=== PATIENT | female | born 1960 | race Caucasian/White ===

== ENCOUNTER 2019-04-20 08:41 | Emergency (ER) | payer MEDICAID ==
[~2019-04-20 08:41] MED LIST: SODIUM BICARBONATE VIAL 50 MEQ/50 ML VIAL ONE
[2019-04-20] MEDS ORDERED: SODIUM CHLORIDE 0.9% (FLUSH) 10 ML SYG IV PRN (08:57)
--- NOTE | 2019-04-20 09:05 | RAD ---
EXAM DESCRIPTION: Chest,1 View CLINICAL HISTORY: 58 years Female, CARDIAC ARREST COMPARISON: None. Findings: Endotracheal tube tip 5 cm above the level of the lisseth. Cardiomegaly. Pulmonary vascular congestion. No pneumothorax. No pleural effusion. No focal consolidation. Interstitial pulmonary edema. No acute osseous abnormality. IMPRESSION: Cardiomegaly with pulmonary vascular congestion. Electronically signed by: Librado Michael MD 04/20/2019 9:04 AM CDT
[2019-04-20 09:20] VITALS: TEMP 97.9
--- NOTE | 2019-04-20 09:52 | ED.PDOC ---
History of Present Illness - General Chief Complaint: Cardiac Respiratory Arrest Time Seen by Provider: 04/20/19 08:56 Source: RN notes reviewed, Vital Signs reviewed, EMS notes reviewed, family - Daughter Exam Limitations: clinical condition Additional Information: Pt is a 58 y/o WF who was admitted to an SNF yesterday as a trach/vent pt. Pt found this am unresponsive. Last seen "normal" at 6 am. EMS called at 8:15 am for unresponsive pt. When they arrived they initially found no pulse. EMS began cpr with the SIMONE device and gave an amp of epi IVP. Pt then noted to have a pulse. Pt transported here for further care. On arrival, pt being bagged. Noted to have a HR in the 110's. Initial BP 85/50.on arrival here patient was given 1 amp of sodium bicarbonate. Patient was bagged rate of 22. End-tidal CO2's were 99. These came down to approximately 70. Patient was then placed on a vent. Patient was noted to intermittently attempt to over breathe the vent. - History of Present Illness Severity: severe Improving Factors: nothing Worsening Factors: nothing Associated Symptoms: other - unknown Allergies/Adverse Reactions: Allergies Benzocaine Allergy (Verified 04/20/19 08:55) Lidocaine Allergy (Verified 04/20/19 08:55) Review of Systems - Review of Systems Review of Systems: 04/20/19 09:52 unable to obtain due to patient's obtunded condition. Past Medical History (General) - Patient Medical History Hx Seizures: No Hx Stroke: No Hx Dementia: No Hx Asthma: Yes Hx of COPD: Yes Hx Cardiac Disorders: Yes Hx Congestive Heart Failure: Yes Hx Pacemaker: No Hx Hypertension: Yes Hx Thyroid Disease: Yes Hx Diabetes: Yes Hx Gastroesophageal Reflux: Yes Physical Exam - Physical Exam General Appearance: Obvious distress - patient is comatose., Obese, Well Groomed, Well Hydrated, Well Nourished Eye Exam: bilateral other - pupils are fixed and dilated at 9 millimeters Neck: supple, normal inspection, other - trach in place. Respiratory: rhonchi - diffusely throughout, other - no spontaneous respiratory effort initially. Cardiovascular/Chest: no murmur, tachycardia Peripheral Pulses: radial,right: 2+, radial,left: 2+ Gastrointestinal/Abdominal: normal bowel sounds, soft, distended Back Exam: normal inspection Extremity: other - patient is comatose and is not moving her extremities. She does have multiple eschars on bilateral forearms. Neurologic: other - patient with a GCS of 3. She is on a trach collar. Skin Exam: warm/dry, pallor Lymphatic: no adenopathy Progress - Progress Progress: 04/20/19 10:51 04/20/19 08:50 LACTIC ACID Stat 04/20/19 08:57 IV Care:Saline Lock per Protoc QSHIFT Telemetry .ONCE Sodium Chloride 0.9% (Flush) [Saline Flush Syringe] 10 ml IV PRN PRN EKG Stat Pulse Ox Stat 04/20/19 09:00 Pulse Oximetry Assessment DAILY 04/20/19 09:29 Urine Culture Stat 04/20/19 09:42 Capnography .ONCE Mechanical Ventilation DAILY 04/20/19 10:19 Arterial Blood Gas Stat Laboratory Results - last 24 hr 04/20/19 04/20/19 04/20/19 08:50 08:50 09:23 WBC 14.6 H RBC 2.73 L Hgb 8.2 L Hct 28.1 L MCV 103.1 H MCH 30.2 MCHC 29.3 L RDW 19.4 H Plt Count 255 MPV 9.4 Absolute Neuts (auto) Not Reportable Absolute Lymphs (auto) Not Reportable Absolute Monos (auto) Not Reportable Absolute Eos (auto) Not Reportable Neutrophils % Not Reportable Neutrophils % (Manual) 35.0 L Lymphocytes % Not Reportable Lymphocytes % (Manual) 49.0 Monocytes % Not Reportable Monocytes % (Manual) 8.0 Eosinophils % Not Reportable Basophils % Not Reportable Band Neutrophils 5.0 H Eosinophils 3.0 Platelet Estimate Normal Normal RBC Morphology 2+aniso PT 10.3 INR 1.03 PTT (SP) 27.0 pCO2 60 H pO2 342 H* HCO3 25.5 ABG pH 7.250 L* ABG O2 Saturation 99.8 H ABG Base Excess -1.6 ABG Deoxyhemoglobin 0.2 Oxyhemoglobin % 96.2 Carboxyhemoglobin % 0.4 L Methemoglobin % Sat 3.2 H Calc Total Hemoglobin 9.0 L Sodium 136 Potassium 4.7 Chloride 88 L Carbon Dioxide 23 Anion Gap 29.7 H BUN 27 H Creatinine 0.87 BUN/Creatinine Ratio 31.0 H Random Glucose 360 H Serum Osmolality 291.6 Calcium 9.4 Magnesium 2.9 H Total Bilirubin 0.8 Direct Bilirubin 0.1 Indirect Bilirubin 0.7 AST 37 ALT 13 Alkaline Phosphatase 71 Creatine Kinase 58 CK-MB (CK-2) 2.1 CK-MB (CK-2) % Not Reportable Troponin I 0.02 B-Natriuretic Peptide 269.0 H* Serum Total Protein 6.4 Albumin 3.3 Urine Color Urine Appearance Urine pH Ur Specific [place] Urine Protein Urine Glucose (UA) Urine Ketones Urine Blood Urine Nitrite Urine Bilirubin Urine Urobilinogen Ur Leukocyte Esterase Urine RBC Urine WBC Ur Epithelial Cells Urine Bacteria Urine Mucus 04/20/19 09:29 WBC RBC Hgb Hct MCV MCH MCHC RDW Plt Count MPV Absolute Neuts (auto) Absolute Lymphs (auto) Absolute Monos (auto) Absolute Eos (auto) Neutrophils % Neutrophils % (Manual) Lymphocytes % Lymphocytes % (Manual) Monocytes % Monocytes % (Manual) Eosinophils % Basophils % Band Neutrophils Eosinophils Platelet Estimate Normal RBC Morphology PT INR PTT (SP) pCO2 pO2 HCO3 ABG pH ABG O2 Saturation ABG Base Excess ABG Deoxyhemoglobin Oxyhemoglobin % Carboxyhemoglobin % Methemoglobin % Sat Calc Total Hemoglobin Sodium Potassium Chloride Carbon Dioxide Anion Gap BUN Creatinine BUN/Creatinine Ratio Random Glucose Serum Osmolality Calcium Magnesium Total Bilirubin Direct Bilirubin Indirect Bilirubin AST ALT Alkaline Phosphatase Creatine Kinase CK-MB (CK-2) CK-MB (CK-2) % Troponin I B-Natriuretic Peptide Serum Total Protein Albumin Urine Color Red H Urine Appearance Cloudy Urine pH 6.5 Ur Specific [place] 1.025 Urine Protein >=300 H Urine Glucose (UA) 100 H Urine Ketones Negative Urine Blood Large H Urine Nitrite Negative Urine Bilirubin Negative Urine Urobilinogen 0.2 Ur Leukocyte Esterase Trace H Urine RBC Tntc H Urine WBC Not Reportable Ur Epithelial Cells Not Reportable Urine Bacteria Not Reportable Urine Mucus Large 04/20/19 10:52 August Manzo M.D. #[id number] - Results/Orders Results/Orders: 04/20/19 08:50 LACTIC ACID Stat 04/20/19 08:57 IV Care:Saline Lock per Protoc QSHIFT Telemetry .ONCE B-TYPE NATRIURETIC PEPTIDE/BNP Stat CARDIAC PANEL,ER Stat HEPATIC FUNCTION PANEL Stat Sodium Chloride 0.9% (Flush) [Saline Flush Syringe] 10 ml IV PRN PRN EKG Stat Pulse Ox Stat 04/20/19 09:00 Pulse Oximetry Assessment DAILY 04/20/19 09:29 Urine Culture Stat 04/20/19 09:42 Capnography .ONCE Mechanical Ventilation DAILY Laboratory Results - last 24 hr 04/20/19 04/20/19 04/20/19 08:50 08:50 09:23 WBC 14.6 H RBC 2.73 L Hgb 8.2 L Hct 28.1 L MCV 103.1 H MCH 30.2 MCHC 29.3 L RDW 19.4 H Plt Count 255 MPV 9.4 Absolute Neuts (auto) Not Reportable Absolute Lymphs (auto) Not Reportable Absolute Monos (auto) Not Reportable Absolute Eos (auto) Not Reportable Neutrophils % Not Reportable Neutrophils % (Manual) 35.0 L Lymphocytes % Not Reportable Lymphocytes % (Manual) 49.0 Monocytes % Not Reportable Monocytes % (Manual) 8.0 Eosinophils % Not Reportable Basophils % Not Reportable Band Neutrophils 5.0 H Eosinophils 3.0 Platelet Estimate Normal Normal RBC Morphology 2+aniso PT 10.3 INR 1.03 PTT (SP) 27.0 pCO2 60 H pO2 342 H* HCO3 25.5 ABG pH 7.250 L* ABG O2 Saturation 99.8 H ABG Base Excess -1.6 ABG Deoxyhemoglobin 0.2 Oxyhemoglobin % 96.2 Carboxyhemoglobin % 0.4 L Methemoglobin % Sat 3.2 H Calc Total Hemoglobin 9.0 L Sodium 136 Potassium 4.7 Chloride 88 L Carbon Dioxide 23 Anion Gap 29.7 H BUN 27 H Creatinine 0.87 BUN/Creatinine Ratio 31.0 H Random Glucose 360 H Serum Osmolality 291.6 Calcium 9.4 Magnesium 2.9 H Total Bilirubin 0.8 Direct Bilirubin 0.1 Indirect Bilirubin 0.7 AST 37 ALT 13 Alkaline Phosphatase 71 Creatine Kinase 58 CK-MB (CK-2) 2.1 CK-MB (CK-2) % Not Reportable Troponin I 0.02 Serum Total Protein 6.4 Albumin 3.3 Urine Color Urine Appearance Urine pH Ur Specific [place] Urine Protein Urine Glucose (UA) Urine Ketones Urine Blood Urine Nitrite Urine Bilirubin Urine Urobilinogen Ur Leukocyte Esterase Urine RBC Urine WBC Ur Epithelial Cells Urine Bacteria Urine Mucus 04/20/19 09:29 WBC RBC Hgb Hct MCV MCH MCHC RDW Plt Count MPV Absolute Neuts (auto) Absolute Lymphs (auto) Absolute Monos (auto) Absolute Eos (auto) Neutrophils % Neutrophils % (Manual) Lymphocytes % Lymphocytes % (Manual) Monocytes % Monocytes % (Manual) Eosinophils % Basophils % Band Neutrophils Eosinophils Platelet Estimate Normal RBC Morphology PT INR PTT (SP) pCO2 pO2 HCO3 ABG pH ABG O2 Saturation ABG Base Excess ABG Deoxyhemoglobin Oxyhemoglobin % Carboxyhemoglobin % Methemoglobin % Sat Calc Total Hemoglobin Sodium Potassium Chloride Carbon Dioxide Anion Gap BUN Creatinine BUN/Creatinine Ratio Random Glucose Serum Osmolality Calcium Magnesium Total Bilirubin Direct Bilirubin Indirect Bilirubin AST ALT Alkaline Phosphatase Creatine Kinase CK-MB (CK-2) CK-MB (CK-2) % Troponin I Serum Total Protein Albumin Urine Color Red H Urine Appearance Cloudy Urine pH 6.5 Ur Specific [place] 1.025 Urine Protein >=300 H Urine Glucose (UA) 100 H Urine Ketones Negative Urine Blood Large H Urine Nitrite Negative Urine Bilirubin Negative Urine Urobilinogen 0.2 Ur Leukocyte Esterase Trace H Urine RBC Tntc H Urine WBC Not Reportable Ur Epithelial Cells Not Reportable Urine Bacteria Not Reportable Urine Mucus Large EXAM DESCRIPTION: Chest,1 View CLINICAL HISTORY: 58 years Female, CARDIAC ARREST COMPARISON: None. Findings: Endotracheal tube tip 5 cm above the level of the lisseth. Cardiomegaly. Pulmonary vascular congestion. No pneumothorax. No pleural effusion. No focal consolidation. Interstitial pulmonary edema. No acute osseous abnormality. IMPRESSION: Cardiomegaly with pulmonary vascular congestion. Electronically signed by: Librado Michael MD 04/20/2019 9:04 AM - EKG/XRAY/CT Comments: sinus tachy at 112 bpm, NAD, no STT wave changes, otherwise normal EKG Departure - Departure Clinical Impression: Cardiopulmonary arrest with successful resuscitation Time of Disposition: 09:37 Disposition: Transfer to Hospital Condition: Poor Referrals: LILA MERRITT [Primary Care Provider] - 1-2 Weeks Critical Care Note - Critical Care Note Total Time (mins): 50 Transfer to Outside Facility - Transfer Information Accepting Provider:: Dr. Chambers Accepting Facility: [facility] Reason for Transfer: emergency department
[2019-04-20 10:25] VITALS: BP 145/73; O2SAT 96
== END 2019-04-20 10:35 | disposition short-term general hospital (02) ==
LOC: ER 08:41
DX: I46.9 Cardiac arrest, cause unspecified (principal); R00.0 Tachycardia, unspecified; J44.9 Chronic obstructive pulmonary disease, unspecified; I50.9 Heart failure, unspecified; I11.0 Hypertensive heart disease with heart failure; E07.9 Disorder of thyroid, unspecified; E11.9 Type 2 diabetes mellitus without complications; K21.9 Gastro-esophageal reflux disease without esophagitis; E66.9 Obesity, unspecified; Z99.11 Dependence on respirator [ventilator] status; Z88.8 Allergy status to other drugs, medicaments and biological substances; Z68.43 Body mass index [BMI] 50.0-59.9, adult